=== PATIENT | female | born 1935 | race Caucasian/White ===

== ENCOUNTER 2017-10-02 09:00 | Outpatient (CLI) | payer MEDICARE, OTHER ==
[~2017-10-02] VITALS: Ht 162.6 cm; Wt 87.1 kg
[~2017-10-02 09:00] MED LIST: ADVIL PM LIQUI1 EACH PO; ASPIR 8181 MG PO; CENTRUM ADULTS1 EACH PO; COZAAR 25 MG TA25 M2 PO; KLOR-CON 1010 MEQ PO; LANTUS SOL100 UNIT/1 SUBQ; LOPRESSOR50 PO; MAXZIDE-25 MG1 EACH PO; NATURAL LUTEIN20 MG PO; NOVOLOG FL100 UNIT/M SUBQ; TRADJENTA5 MG; VITAMIN D3400 UNIT PO
[2017-10-02 09:54] LABS: HEMATOCRIT 39.3 % (37.0-47.0); HEMOGLOBIN 13.1 gm/dL (12.0-15.0); MCH 28.4 pg (26.0-34.0); MCHC 33.4 g/dL (28.0-37.0); MCV 85.1 fL (80.0-100.0); MPV 9.4 fl. (7.2-11.1); RBC 4.62 mil/uL (4.20-5.00); RDW-CV 14.2 % (10.5-14.5); WBC 6.1 thou/uL (4.0-11.0)
[2017-10-02 10:11] VITALS: BP 113/68
[2017-10-02 10:12] LABS: APTT 27.6 Seconds (25.0-31.3)
[2017-10-02 10:39] LABS: ANION GAP 10 mmol/L (7-16); CALCIUM 9.6 mg/dL (8.5-10.1); CHLORIDE 101 mmol/L (98-107); CO2 25 mmol/L (21-32); GLUCOSE 270 mg/dL (70-99); POTASSIUM 4.1 mmol/L (3.5-5.1); SODIUM 136 mmol/L (136-145)
[2017-10-02 10:42] LABS: CREATININE 1.4 mg/dL (0.6-1.3)
[2017-10-02 10:44] LABS: ALBUMIN 3.3 g/dL (3.4-5.0); ALKALINE PHOSPHATASE 122 U/L (46-116); CHOLESTEROL 246 mg/dL (<200); HDL CHOLESTEROL 52 mg/dL (>40); LDL CHOLESTEROL 175 mg/dL (<100); SGOT 19 U/L (15-37); SGPT 20 U/L (30-65); TC:HDL 4.7 Ratio (Not establshd); TOTAL BILIRUBIN 0.9 mg/dL (<0.1-1.0); TOTAL PROTEIN 7.2 g/dL (6.4-8.2); TRIGLYCERIDE 96 mg/dL (<150); VLDL 19 mg/dL (<40)
[2017-10-02 10:48] LABS: SERUM ASSESSMENT Clear
[2017-10-02 12:35] LABS: BUN 20 mg/dL (7-18)
[2017-10-02 15:00] VITALS: BP 113/68
--- NOTE | 2017-10-02 15:20 | EKG ---
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: [facility] : 1935 Requested By: Bryson Thomas Order Number: [id number] Olaf MD: Bryson Thomas Measurements Intervals [place] Rate: 76 P: 53 [place]: 142 QRS: -41 QRSD: 104 T: 31 QT: 381 QTc: 429 Interpretive Statements Sinus rhythm Left anterior fascicular block Low voltage, precordial leads Consider anterior infarct No previous ECG available for comparison Electronically Signed On 10-02-2017 15:20:10 CDT by Bryson Thomas [email or web address] <ELECTRONICALLY SIGNED> By: Bryson Thomas MD, [facility] 10/02/17 1520 5 5 Bryson Thomas MD, [facility] /EPI
[2017-10-02 15:30] VITALS: BP 113/68
--- NOTE | 2017-10-02 15:41 | CARD ---
[address] [address] CARDIAC CATH REPORT Name: AURE CHAVIS Room: [address] VirgilioYasmin#: [id number] Admission: 10/02/17 Attend Phys: Bryson Thomas MD, Discharge: Date of : 35 Report #: [id number] THIS REPORT FOR: //name// APPROVED REPORT Study performed: 10/02/2017 11:49:41 Patient Details Patient Status: Out-Patient Room #: The patient is a 82 year-old female Event Personnel Bryson Thomas Solid Die Cutter, Mar Lr RN Material Scheduler, Rafita Cavazos (R) Jesus Carlin Diane Monitor, Eliana Killian RTR Monitor Procedures Performed Art Access - R femoral artery* Left Heart Cath w/or w/o Coronaries [id number] [facility] Hemostasis w/ Mynx Indication Chest pain Risk Factors Peripheral Vascular Disease, Hypercholesterolemia, Hypertension, Diabetes Procedure Narrative The patient was brought electively to the Cardiac Catheterization Laboratory and was prepped and draped in a sterile manner. The right femoral was infiltrated with 1% Lidocaine subcutaneous anesthesia. A [place] 6 FR sheath was inserted into the right femoral artery. Coronary angiography was performed using coronary diagnostic catheters. The right coronary system was accessed and visualized with a 6FR JR4 catheter. The left coronary system was accessed and visualized with a 6FR JL4 catheter. The left ventricle was accessed and visualized with a 6Fr Pigtail catheter. Left ventricular/Aortic Valve gradient assessed via catheter pullback. Pre-demployment femoral angiogram was performed . The patient tolerated the procedure well and there were no complications associated with the procedure. There was no hematoma. Intraoperative Conscious Sedation Sedation start time: 12:30 Case end Time: 12:42 [place] [address] CARDIAC CATH REPORT Name: AURE CHAVIS Room: [address]#: [id number] Admission: 10/02/17 Attend Phys: Bryson Thomas MD, Discharge: Date of : 35 Report #: [id number] Fentanyl 25 mcg Versed 1 mg Fluoro Time: 2.1 minutes Dose: DAP 81582 cGycm2 542.66 mGy Contrast Type and Amount: Visipaque 120 ml Coronary Angiography The patient's coronary anatomy is right dominant. Diagnostic Cath Left Main 0% narrowing LAD 20% mid LAD narrowing Circumflex 20% narrowing of the proximal portion of the prominent first marginal branch of the circumflex Right Coronary Large dominant vessel with 0% narrowing Hemodynamics The aortic pressure is 145/63 mmHg with a mean of 88 mmHg. The left ventricular pressure is 144/3 mmHg with a mean of mmHg. The left ventricular end diastolic pressure is 6 mmHg. There was no gradient across the aortic valve upon pullback. Conclusion #1 mild coronary artery disease characterized by the following: A 20% mid LAD narrowing, B 20% narrowing of the proximal portion of the first marginal branch of the nondominant circumflex C normal left main and dominant right coronary artery. #2 normal left-sided hemodynamics study Recommendations Cardiac Risk Reduction Program Diagnostic Cath Approved by: Bryson Thomas MD Date/Time: 10/02/17 at 1539 hrs. <ELECTRONICALLY SIGNED> By: Bryson Thomas MD, [facility] 10/02/17 1541 [id number] Thomas MD, [facility] /INF
[2017-10-02 16:00] VITALS: BP 113/68
[2017-10-02 16:30] VITALS: BP 143/60
== END 2017-10-02 15:41 | disposition home or self-care (01) ==
LOC: M.CL 09:00 → M.TBA-CV 12:58 → M.CL 12:58 → M.TBA-CV 12:58 → M.CL 12:58
PROVIDERS: Internal Medicine
DX: I25.10 Atherosclerotic heart disease of native coronary artery without angina pectoris (principal); I10 Essential (primary) hypertension; E11.9 Type 2 diabetes mellitus without complications; E78.00 Pure hypercholesterolemia, unspecified; I73.89 Other specified peripheral vascular diseases; Z79.82 Long term (current) use of aspirin; Z79.4 Long term (current) use of insulin; Z79.899 Other long term (current) drug therapy; Z91.041 Radiographic dye allergy status